=== PATIENT | male | born 1990 | race Caucasian/White ===

== ENCOUNTER 2017-01-15 01:00 | Emergency (ER) | payer SELFPAY ==
[~2017-01-15] VITALS: Ht 188 cm; Wt 81.6 kg
--- NOTE | 2017-01-15 01:00 | NUR ---
Patient was [facility] at this time.
[2017-01-15 01:07] VITALS: BP 134/84
--- NOTE | 2017-01-15 01:45 | NUR ---
Dr. Hernandez evaluating patient.
[2017-01-15 01:50] VITALS: BP 134/84
--- NOTE | 2017-01-15 01:50 | NUR ---
PATIENT BIB [facility]. PATIENT EXAMINED BY DR. HENDERSON. PATIENT MEDICALLY CLEARED AND RELEASED IN CUSTODY IN STABLE CONDITION. ORIGINAL PRE-BOOK FORM GIVEN TO OFFICER DEJAN.
== END 2017-01-15 01:50 ==
LOC: MED 01:00
DX: Z02.89 Encounter for other administrative examinations (principal); S16.1XXA Strain of muscle, fascia and tendon at neck level, initial encounter; R03.0 Elevated blood-pressure reading, without diagnosis of hypertension; V89.2XXA Person injured in unspecified motor-vehicle accident, traffic, initial encounter; Y93.89 Activity, other specified; Y92.411 Interstate highway as the place of occurrence of the external cause; Y99.8 Other external cause status